=== PATIENT | male | born 1935 | race Hispanic/Latino ===

== ENCOUNTER 2018-10-23 00:45 | Emergency (ER) | payer MEDICARE ==
--- NOTE | 2018-10-23 01:38 | Cat Scan Report ---
PROCEDURE: CT HEAD/BRAIN WO CON TECHNIQUE: Routine axial imaging was obtained of the brain without contrast. HISTORY: neuro deficits <6hrs or sx present upon awakening COMPARISONS: None FINDINGS: There is age related volume loss. There is diminished attenuation of the periventricular white matter compatible with chronic ischemic white matter disease changes. There is a remote stroke in the right occipital lobe. There is no evidence of acute stroke or hemorrhage. The sinuses reveal patchy mucosa l thickening in the ethmoidal air cells and maxillary sinuses. The calvarium appears intact. IMPRESSION: Age related atrophy with severe chronic ischemic white matter disease changes. No acute stroke or hem orrhage. Remote stroke in the right occipital lobe. Sinusitis as described.. This document is electronically signed by Bhargav Hylton MD., October 23 2018 01:35:54 AM ET
--- NOTE | 2018-10-23 01:48 | Cat Scan Report ---
PROCEDURE: CT CERVICAL SPINE WO CON TECHNIQUE: Routine axial imaging was obtained of the cervical spine without contrast with sagittal a nd coronal reconstructions. HISTORY: fall, dementia COMPARISONS: None FINDINGS: There is a levoscoliosis and reversal of the usual cervical lordosis secondary to patient positioning and/or spasm. There is moderate narrowing of the C3-C4 disc with severe right-sided facet arthropathy changes. The canal size is normal. There is severe narrowing of the C4-C5 discs with anterior osteophytes. There is right-sided facet ar thropathy changes. At the C5-C6 level there is severe narrowing of disc with endplate spurring. There is mild canal sten osis at this level. There is mild facet arthropathy changes. At the C6-C7 level there is severe narrowing of this with endplate spurring. There is bilateral facet arthropathy changes. At the C7-T1 level there is moderate narrowing of the disc. There is a minimal a minimal anterolisthesis with associated severe facet arthropathy changes. Also a t the C7-T1 level. There is no evidence of fracture. The surrounding soft tissues reveal bilateral carotid artery calcif ications. The prevertebral soft tissues appear normal. The C1-C2 articulation reveals moderate arthri tic changes. IMPRESSION: Extensive multilevel degenerative arthritic changes as described. No acute fracture identified.. This document is electronically signed by Bhargav Hylton MD., October 23 2018 01:46:00 AM ET
[2018-10-23 01:54] LABS: Basophils # (Auto) 0.1 K/mm3 (0.0-0.1); Eosinophils # (Auto) 0.5 K/mm3 (0.0-0.4); Eosinophils % (Auto) 5.6 % (0.0-4.3); Hematocrit 44.7 % (35.5-45.6); Lymphocytes # (Auto) 1.9 K/mm3 (1.2-5.4); Lymphocytes % (Auto) 20.6 % (13.4-35.0); Mean Corpuscular HGB Conc 34 % (32-34); Mean Corpuscular Volume 86 fl (84-94); Monocytes # (Auto) 1.2 K/mm3 (0.0-0.8); Monocytes % (Auto) 13.4 % (0.0-7.3); Platelet Count 282 K/mm3 (140-440); Red Blood Count 5.21 M/mm3 (3.65-5.03); Red Cell Distribution Width 14.4 % (13.2-15.2)
[2018-10-23 02:06] LABS: INR 0.94 (0.87-1.13)
[2018-10-23 02:07] LABS: Partial Thromboplastin Time 30.1 Sec. (24.2-36.6); Thrombin Time 15.6 Sec. (15.1-19.6)
[2018-10-23 02:14] LABS: BUN/Creatinine Ratio 14; Blood Urea Nitrogen 14 mg/dL (9-20); Calcium 9.1 mg/dL (8.4-10.2); Hemolysis Index 7
[2018-10-23] MEDS ORDERED: NACL 0.9% 500 ML 500 ML IV ONE (02:27)
--- NOTE | 2018-10-23 02:46 | Emergency Department Report ---
ED Altered Mental Status HPI - General Chief Complaint: Fall Stated Complaint: UNSTEADY GAIT Time Seen by Provider: 10/23/18 01:06 Source: family, EMS Mode of arrival: Stretcher Limitations: Altered Mental Status, Physical Limitation - History of Present Illness Initial Comments: 83-year-old male with a past medical history COPD, CVA, "mild" dementia, h ypothyroidism, and hypertension presents to the hospital with altered mental status and fall. Patient is accompanied by his daughter at the bedside. Patient lives with his daughter. She states that patient told her that he took 2 Tylenol PM at 4:30 PM. She heard him fall then immediately cry out she was in another room. She came in to find him on the floor. Patient complains chronic left hip pain from previous surgery and injury that is unchanged. She states that this evening he was having visual and auditory hallucinations. Patient is alert and oriented 3 and hard of hearing. - Related Data Allergies Allergy/AdvReac Type Severity Reaction Status Date / Time aspirin Allergy Unknown Verified 10/23/18 01:01 ED Review of Systems ROS: Stated complaint: UNSTEADY GAIT Other details as noted in HPI Comment: All other systems reviewed and negative ED Past Medical Hx - Past Medical History Previous Medical History?: Yes Hx Hypertension: Yes Hx CVA: Yes (Left sided weakness) Hx COPD: Yes Hx Dementia: Yes Additional medical history: hypothyroidism - Surgical History Past Surgical History?: Yes Additional Surgical History: open heart surgery, hernia repair, Left hip surgery - Social History Smoking Status: Current Every Day Smoker ED Physical Exam - General Limitations: Altered Mental Status, Physical Limitation - Other Other exam information: General: No limitations, patient is alert in no acute distress Head exam: Atraumatic, normocephalic Eyes exam: Normal appearance, pupils equal reactive to light, extraocular movements intact ENT: Moist mucous membrane, hard of hearing Neck exam: Normal inspection, full range of motion, no meningismus nontender Respiratory exam: Clear to auscultation bilateral, no wheezes, rales, crackles Cardiovascular: Normal rate and rhythm, normal heart sounds Abdomen: Soft, nondistended, and nontender, with normal bowel sounds, no rebound, or guarding Extremity: Full range of motion normal inspection no deformity Back: Normal Inspection, full range of motion, no tenderness Neurologic: Alert, oriented x3, cranial nerves intact, no motor or sensory deficit Psychiatric: normal affect, normal mood Skin: Warm, dry, intact ED Course Vital Signs 10/23/18 10/23/18 10/23/18 00:55 00:57 01:08 Temperature 98.1 F Pulse Rate 63 63 Respiratory 13 15 15 Rate Blood Pressure 175/85 Blood Pressure 175/85 [Right] O2 Sat by Pulse 95 94 Oximetry 10/23/18 10/23/18 03:01 04:01 Temperature Pulse Rate 58 L 63 Respiratory 15 19 Rate Blood Pressure 163/86 163/86 Blood Pressure [Right] O2 Sat by Pulse 97 97 Oximetry - Lab Data Result diagrams: 10/23/18 01:33 10/23/18 01:33 Lab Results 10/23/18 10/23/18 10/23/18 Range/Units 01:33 01:33 01:33 WBC 9.2 (4.5-11.0) K/mm3 RBC 5.21 H (3.65-5.03) M/mm3 Hgb 15.0 (11.8-15.2) gm/dl Hct 44.7 (35.5-45.6) % MCV 86 (84-94) fl MCH 29 (28-32) pg MCHC 34 (32-34) % RDW 14.4 (13.2-15.2) % Plt Count 282 (140-440) K/mm3 Lymph % (Auto) 20.6 (13.4-35.0) % [place] % (Auto) 13.4 H (0.0-7.3) % Eos % (Auto) 5.6 H (0.0-4.3) % Baso % (Auto) 1.0 (0.0-1.8) % Lymph # 1.9 (1.2-5.4) K/mm3 [place] # 1.2 H (0.0-0.8) K/mm3 Eos # 0.5 H (0.0-0.4) K/mm3 Baso # 0.1 (0.0-0.1) K/mm3 Seg Neutrophils % 59.4 (40.0-70.0) % Seg Neutrophils # 5.4 (1.8-7.7) K/mm3 PT 13.1 (12.2-14.9) Sec. INR 0.94 (0.87-1.13) APTT 30.1 (24.2-36.6) Sec. Thrombin Time 15.6 (15.1-19.6) Sec. Sodium 140 (137-145) mmol/L Potassium 3.9 (3.6-5.0) mmol/L Chloride 102.6 (98-107) mmol/L Carbon Dioxide 25 (22-30) mmol/L Anion Gap 16 mmol/L BUN 14 (9-20) mg/dL Creatinine 1.0 (0.8-1.5) mg/dL Estimated GFR > 60 ml/min BUN/Creatinine Ratio 14 % Glucose 89 (75-100) mg/dL Calcium 9.1 (8.4-10.2) mg/dL Troponin T < 0.010 (0.00-0.029) ng/mL TSH (0.270-4.200) mlU/mL Free T4 (0.76-1.46) ng/dL Urine Color (Yellow) Urine Turbidity (Clear) Urine pH (5.0-7.0) Ur Specific [place] (1.003-1.030) Urine Protein (Negative) mg/dL Urine Glucose (UA) (Negative) mg/dL Urine Ketones (Negative) mg/dL Urine Blood (Negative) Urine Nitrite (Negative) Urine Bilirubin (Negative) Urine Urobilinogen (<2.0) mg/dL Ur Leukocyte Esterase (Negative) Urine WBC (Auto) (0.0-6.0) /HPF Urine RBC (Auto) (0.0-6.0) /HPF U Epithel Cells (Auto) (0-13.0) /HPF Urine Mucus /HPF Salicylates (2.8-20.0) mg/dL Urine Opiates Screen Urine Methadone Screen Acetaminophen (10.0-30.0) ug/mL Ur Barbiturates Screen Ur Phencyclidine Scrn Ur Amphetamines Screen U Benzodiazepines Scrn Urine Cocaine Screen U Marijuana (THC) Screen Drugs of Abuse Note Plasma/Serum Alcohol (0-0.07) % 10/23/18 10/23/18 10/23/18 Range/Units 02:30 02:37 02:37 WBC (4.5-11.0) K/mm3 RBC (3.65-5.03) M/mm3 Hgb (11.8-15.2) gm/dl Hct (35.5-45.6) % MCV (84-94) fl MCH (28-32) pg MCHC (32-34) % RDW (13.2-15.2) % Plt Count (140-440) K/mm3 Lymph % (Auto) (13.4-35.0) % [place] % (Auto) (0.0-7.3) % Eos % (Auto) (0.0-4.3) % Baso % (Auto) (0.0-1.8) % Lymph # (1.2-5.4) K/mm3 [place] # (0.0-0.8) K/mm3 Eos # (0.0-0.4) K/mm3 Baso # (0.0-0.1) K/mm3 Seg Neutrophils % (40.0-70.0) % Seg Neutrophils # (1.8-7.7) K/mm3 PT (12.2-14.9) Sec. INR (0.87-1.13) APTT (24.2-36.6) Sec. Thrombin Time (15.1-19.6) Sec. Sodium (137-145) mmol/L Potassium (3.6-5.0) mmol/L Chloride (98-107) mmol/L Carbon Dioxide (22-30) mmol/L Anion Gap mmol/L BUN (9-20) mg/dL Creatinine (0.8-1.5) mg/dL Estimated GFR ml/min BUN/Creatinine Ratio % Glucose (75-100) mg/dL Calcium (8.4-10.2) mg/dL Troponin T (0.00-0.029) ng/mL TSH 6.580 H (0.270-4.200) mlU/mL Free T4 1.05 (0.76-1.46) ng/dL Urine Color (Yellow) Urine Turbidity (Clear) Urine pH (5.0-7.0) Ur Specific [place] (1.003-1.030) Urine Protein (Negative) mg/dL Urine Glucose (UA) (Negative) mg/dL Urine Ketones (Negative) mg/dL Urine Blood (Negative) Urine Nitrite (Negative) Urine Bilirubin (Negative) Urine Urobilinogen (<2.0) mg/dL Ur Leukocyte Esterase (Negative) Urine WBC (Auto) (0.0-6.0) /HPF Urine RBC (Auto) (0.0-6.0) /HPF U Epithel Cells (Auto) (0-13.0) /HPF Urine Mucus /HPF Salicylates < 0.3 L (2.8-20.0) mg/dL Urine Opiates Screen Urine Methadone Screen Acetaminophen < 5.0 L (10.0-30.0) ug/mL Ur Barbiturates Screen Ur Phencyclidine Scrn Ur Amphetamines Screen U Benzodiazepines Scrn Urine Cocaine Screen U Marijuana (THC) Screen Drugs of Abuse Note Plasma/Serum Alcohol (0-0.07) % 10/23/18 10/23/18 10/23/18 Range/Units 02:37 02:50 02:50 WBC (4.5-11.0) K/mm3 RBC (3.65-5.03) M/mm3 Hgb (11.8-15.2) gm/dl Hct (35.5-45.6) % MCV (84-94) fl MCH (28-32) pg MCHC (32-34) % RDW (13.2-15.2) % Plt Count (140-440) K/mm3 Lymph % (Auto) (13.4-35.0) % [place] % (Auto) (0.0-7.3) % Eos % (Auto) (0.0-4.3) % Baso % (Auto) (0.0-1.8) % Lymph # (1.2-5.4) K/mm3 [place] # (0.0-0.8) K/mm3 Eos # (0.0-0.4) K/mm3 Baso # (0.0-0.1) K/mm3 Seg Neutrophils % (40.0-70.0) % Seg Neutrophils # (1.8-7.7) K/mm3 PT (12.2-14.9) Sec. INR (0.87-1.13) APTT (24.2-36.6) Sec. Thrombin Time (15.1-19.6) Sec. Sodium (137-145) mmol/L Potassium (3.6-5.0) mmol/L Chloride (98-107) mmol/L Carbon Dioxide (22-30) mmol/L Anion Gap mmol/L BUN (9-20) mg/dL Creatinine (0.8-1.5) mg/dL Estimated GFR ml/min BUN/Creatinine Ratio % Glucose (75-100) mg/dL Calcium (8.4-10.2) mg/dL Troponin T (0.00-0.029) ng/mL TSH (0.270-4.200) mlU/mL Free T4 (0.76-1.46) ng/dL Urine Color Yellow (Yellow) Urine Turbidity Clear (Clear) Urine pH 7.0 (5.0-7.0) Ur Specific [place] 1.010 (1.003-1.030) Urine Protein <15 mg/dl (Negative) mg/dL Urine Glucose (UA) Neg (Negative) mg/dL Urine Ketones Neg (Negative) mg/dL Urine Blood Neg (Negative) Urine Nitrite Neg (Negative) Urine Bilirubin Neg (Negative) Urine Urobilinogen < 2.0 (<2.0) mg/dL Ur Leukocyte Esterase Neg (Negative) Urine WBC (Auto) 1.0 (0.0-6.0) /HPF Urine RBC (Auto) 1.0 (0.0-6.0) /HPF U Epithel Cells (Auto) < 1.0 (0-13.0) /HPF Urine Mucus Few /HPF Salicylates (2.8-20.0) mg/dL Urine Opiates Screen Presumptive negative Urine Methadone Screen Presumptive negative Acetaminophen (10.0-30.0) ug/mL Ur Barbiturates Screen Presumptive negative Ur Phencyclidine Scrn Presumptive negative Ur Amphetamines Screen Presumptive negative U Benzodiazepines Scrn Presumptive negative Urine Cocaine Screen Presumptive negative U Marijuana (THC) Screen Presumptive negative Drugs of Abuse Note Disclamer Plasma/Serum Alcohol < 0.01 (0-0.07) % - Radiology Data Radiology results: report reviewed PROCEDURE: CT HEAD/BRAIN WO CON TECHNIQUE: Routine axial imaging was obtained of the brain without contrast. HISTORY: neuro deficits <6hrs or sx present upon awakening COMPARISONS: None FINDINGS: There is age related volume loss. There is diminished attenuation of the periventricular white matter compatible with chronic ischemic white matter disease changes. There is a remote stroke in the right occipital lobe. There is no evidence of acute stroke or hemorrhage. The sinuses reveal patchy mucosal thickening in the ethmoidal air cells and maxillary sinuses. The calvarium appears intact. IMPRESSION: Age related atrophy with severe chronic ischemic white matter disease changes. No acute stroke or hemorrhage. Remote stroke in the right occipital lobe. Sinusitis as described.. PROCEDURE: CT CERVICAL SPINE WO CON TECHNIQUE: Routine axial imaging was obtained of the cervical spine without contrast with sagittal and coronal reconstructions. HISTORY: fall, dementia COMPARISONS: None FINDINGS: There is a levoscoliosis and reversal of the usual cervical lordosis secondary to patient positioning and/or spasm. There is moderate narrowing of the C3-C4 disc with severe right-sided facet arthropathy changes. The canal size is normal. There is severe narrowing of the C4-C5 discs with anterior osteophytes. There is right-sided facet arthropathy changes. At the C5-C6 level there is severe narrowing of disc with endplate spurring. There is mild canal stenosis at this level. There is mild facet arthropathy changes. At the C6-C7 level there is severe narrowing of this with endplate spurring. There is bilateral facet arthropathy changes. At the C7-T1 level there is moderate narrowing of the disc. There is a minimal a minimal anterolisthesis with associated severe facet arthropathy changes. Also at the C7-T1 level. There is no evidence of fracture. The surrounding soft tissues reveal bilateral carotid artery calcifications. The prevertebral soft tissues appear normal. The C1-C2 articulation reveals moderate arthritic changes. IMPRESSION: Extensive multilevel degenerative arthritic changes as described. No acute fracture identified.. PROCEDURE: XR HIP 2-3V LT TECHNIQUE: An AP view of the pelvis was obtained on with 2 views of the left hip. HISTORY: acute exacerbation of chronic pain after fall COMPARISONS: None FINDINGS: There is [id number] narrowing of both hip joint spaces. There is no evidence of fracture. The bony pelvic ring appears intact. There is generalized osteopenia. The SI joints appear normal. The soft tissues are unremarkable. IMPRESSION: Bilateral mild to moderate arthritic changes of both hip joint spaces. No evidence of fracture.. - Medical Decision Making I suspect that patient has progressively worsening dementia. Apparently he has not had any psychiatric evaluation since initial diagnosis in 2007 or 2008. I also suspect his symptoms were exacerbated tonight due to taking Tylenol PM in the early evening. Patient is pleasant, follow commands, it is not overtly psychotic, combative, or vomiting. Patient received mental health evaluation as well as provided several outpatient resources for further psychiatric treatment. No acute injury or infection was identified during her ED evaluation. - Differential Diagnosis dementia, delirium, UTI, fracture, fall, adverse drug reaction Critical Care Time: No Critical care attestation.: If time is entered above; I have spent that time in minutes in the direct care of this critically ill patient, excluding procedure time. ED Disposition Clinical Impression: Dementia, Fall Disposition: DC-01 TO HOME OR SELFCARE Is pt being admited?: No Does the pt Need Aspirin: No Condition: Stable Instructions: Dementia (ED), Fall Prevention for Older Adults (ED) Additional Instructions: Follow up with your doctor or the clinic/doctor provided by the Mental health director diversity. Return if symptoms worsen as indicated by your discharge instructions Referrals: PRIMARY CARE,MD [Primary Care Provider] - 3-5 Days psychiatric, clinic [Other] - 3-5 Days Time of Disposition: 05:21
[2018-10-23 03:20] VITALS: BP 163/86
[2018-10-23 03:22] LABS: Free T4 (Free Thyroxine) 1.05 ng/dL (0.76-1.46)
[2018-10-23 03:25] LABS: Amphetamine Screen,Urine PRESUMPTIVE NEGATIVE; Benzodiazepines Screen,Urine PRESUMPTIVE NEGATIVE; Cannabinoid Screen,Urine PRESUMPTIVE NEGATIVE; Cocaine Screen,Urine PRESUMPTIVE NEGATIVE; Methadone Screen,Urine PRESUMPTIVE NEGATIVE; Opiate Screen,Urine PRESUMPTIVE NEGATIVE
[2018-10-23 03:30] LABS: Bilirubin,Urine NEG (Negative); Blood,Urine NEG (Negative); Color,Urine Yellow (Yellow); Mucus,Urine FEW /HPF; Protein,Urine <15 mg/dL mg/dL (Negative); Urobilinogen,Urine < 2.0 mg/dL (<2.0)
--- NOTE | 2018-10-23 05:17 | XRay Report ---
PROCEDURE: XR HIP 2-3V LT TECHNIQUE: An AP view of the pelvis was obtained on with 2 views of the left hip. HISTORY: acute exacerbation of chronic pain after fall COMPARISONS: None FINDINGS: There is [id number] narrowing of both hip joint spaces. There is no evidence of fracture. The b jared pelvic ring appears intact. There is generalized osteopenia. The SI joints appear normal. The sof t tissues are unremarkable. IMPRESSION: Bilateral mild to moderate arthritic changes of both hip joint spaces. No evidence of fracture.. This document is electronically signed by Bhargav Hylton MD., October 23 2018 05:15:51 AM ET
== END 2018-10-23 05:39 | disposition home or self-care (01) ==
LOC: ED 00:45
DX: F03.90 Unspecified dementia, unspecified severity, without behavioral disturbance, psychotic disturbance, mood disturbance, and anxiety (principal); I10 Essential (primary) hypertension; J44.9 Chronic obstructive pulmonary disease, unspecified; F17.200 Nicotine dependence, unspecified, uncomplicated; E03.9 Hypothyroidism, unspecified; Z88.6 Allergy status to analgesic agent
CPT/HCPCS: 36415; 70450; 72125; 73502; 80048; 80307; 81001; 84439; 84443; 84484; 85025; 85610; 85670; 85730; 93005; 93010; 99285; G0480; 80320

== ENCOUNTER 2019-02-17 07:38 | Emergency (ER) | payer MEDICARE ==
--- NOTE | 2019-02-17 08:20 | Emergency Department Report ---
ED General Adult HPI - General Chief complaint: Neuro Symptoms/Deficit Stated complaint: HALLUCINATIONS Time Seen by Provider: 02/17/19 08:18 Source: patient Mode of arrival: Ambulatory Limitations: No Limitations - History of Present Illness Initial comments: This is an 83-year-old man who presents with his disorder who is somewhat distraught about his recent behavioral issues. Apparently the patient has been hallucinating asking about tractors and his did sister. She is correlating this with Namenda which he began taking a few days ago. This was prescribed by a neurologist in [facility]. She states that the patient has seen a psychiatrist in 2015 but is not currently under care. He does have a history of dementia a diagnosis which the daughter very poorly comprehends. The patient himself is not offering any active complaints. He is somewhat perseverating and seems to be on confabulating or distracting from his cognitive challenges. He finally tells me his name and that he is in the hospital. He has no specific complaints himself. Family has stopped the Namenda. Last ED visit: 83-year-old male with a past medical history COPD, CVA, "mild" dementia, hypothyroidism, and hypertension presents to the hospital with altered mental status and fall. Patient is accompanied by his daughter at the bedside. Patient lives with his daughter. She states that patient told her that he took 2 Tylenol PM at 4:30 PM. She heard him fall then immediately cry out she was in another room. She came in to find him on the floor. Patient complains chronic left hip pain from previous surgery and injury that is unchanged. She states that this evening he was having visual and auditory hallucinations. Patient is alert and oriented 3 and hard of hearing. -: days(s) Associated Symptoms: denies other symptoms - Related Data Allergies Allergy/AdvReac Type Severity Reaction Status Date / Time aspirin Allergy Unknown Verified 10/23/18 01:01 ED Review of Systems ROS: Stated complaint: HALLUCINATIONS Other details as noted in HPI Comment: Unobtainable due to pts medical conditions (no specific complaints by review limited secondary to dementia) Respiratory: cough (recurrent cough, the daughter attributes this to COPD.) ED Past Medical Hx - Past Medical History Hx Hypertension: Yes Hx CVA: Yes (Left sided weakness) Hx COPD: Yes Hx Dementia: Yes Additional medical history: hypothyroidism. Dementia - Surgical History Additional Surgical History: open heart surgery, hernia repair, Left hip surgery - Social History Smoking Status: Never Smoker Substance Use Type: None ED Physical Exam - General Limitations: Other (dementia) General appearance: alert, in no apparent distress - Head Head exam: Present: atraumatic, normocephalic - Eye Eye exam: Present: normal appearance - ENT ENT exam: Present: mucous membranes moist - Neck Neck exam: Present: normal inspection. Absent: tenderness, meningismus - Respiratory Respiratory exam: Present: normal lung sounds bilaterally. Absent: respiratory distress - Cardiovascular Cardiovascular Exam: Present: regular rate, normal rhythm. Absent: systolic murmur, diastolic murmur, rubs, gallop - GI/Abdominal GI/Abdominal exam: Present: soft, normal bowel sounds. Absent: distended, tenderness, guarding, rebound - Rectal Rectal exam: Present: deferred - Extremities Exam Extremities exam: Present: normal inspection - Back Exam Back exam: Present: normal inspection - Neurological Exam Neurological exam: Present: alert, altered, other (no acute focal deficits) - Psychiatric Psychiatric exam: Present: normal mood, agitated (mildly) - Skin Skin exam: Present: warm, dry, intact, normal color. Absent: rash ED Course Vital Signs 02/17/19 02/17/19 07:57 11:28 Temperature 98.5 F Pulse Rate 65 84 Respiratory 16 16 Rate Blood Pressure 151/72 Blood Pressure 140/86 [Left] O2 Sat by Pulse 94 93 Oximetry - Reevaluation(s) Reevaluation #1: I have discussed the case with Emily (mental health counselor) he has also discussed the case with the psychiatric nurse practitioner Sloan. They have recommended a psychiatrist for near-term follow-up. They do not recommend antipsychotics at this point. They do not believe the patient is appropriate for inpatient placement. He will be discharged. 02/17/19 14:27 ED Medical Decision Making - Lab Data Result diagrams: 02/17/19 08:33 02/17/19 08:33 Laboratory Results - last 24 hr 02/17/19 02/17/19 02/17/19 08:33 08:33 08:33 WBC 9.1 RBC 5.17 H Hgb 15.0 Hct 45.2 MCV 88 MCH 29 MCHC 33 RDW 14.2 Plt Count 307 Lymph % (Auto) 16.4 [place] % (Auto) 10.5 H Eos % (Auto) 5.7 H Baso % (Auto) 1.9 H Lymph # 1.5 [place] # 1.0 H Eos # 0.5 H Baso # 0.2 H Seg Neutrophils % 65.5 Seg Neutrophils # 5.9 POC ABG pH POC ABG pCO2 POC ABG pO2 POC ABG HCO3 POC ABG Total CO2 POC ABG O2 Sat POC ABG Base Excess FiO2 Sodium 140 Potassium 4.4 Chloride 103.4 Carbon Dioxide 24 Anion Gap 17 BUN 17 Creatinine 1.1 Estimated GFR > 60 BUN/Creatinine Ratio 15 Glucose 102 H POC Glucose Calcium 9.3 Total Bilirubin 0.50 Direct Bilirubin < 0.2 Indirect Bilirubin 0.3 AST 15 ALT 10 Alkaline Phosphatase 95 Ammonia Total Protein 7.0 Albumin 3.7 L Albumin/Globulin Ratio 1.1 TSH Free T4 Plasma/Serum Alcohol 02/17/19 02/17/19 02/17/19 08:33 08:33 08:40 WBC RBC Hgb Hct MCV MCH MCHC RDW Plt Count Lymph % (Auto) [place] % (Auto) Eos % (Auto) Baso % (Auto) Lymph # [place] # Eos # Baso # Seg Neutrophils % Seg Neutrophils # POC ABG pH POC ABG pCO2 POC ABG pO2 POC ABG HCO3 POC ABG Total CO2 POC ABG O2 Sat POC ABG Base Excess FiO2 Sodium Potassium Chloride Carbon Dioxide Anion Gap BUN Creatinine Estimated GFR BUN/Creatinine Ratio Glucose POC Glucose Calcium Total Bilirubin Direct Bilirubin Indirect Bilirubin AST ALT Alkaline Phosphatase Ammonia 47.0 Total Protein Albumin Albumin/Globulin Ratio TSH 5.570 H Free T4 0.82 Plasma/Serum Alcohol < 0.01 02/17/19 02/17/19 09:07 09:35 WBC RBC Hgb Hct MCV MCH MCHC RDW Plt Count Lymph % (Auto) [place] % (Auto) Eos % (Auto) Baso % (Auto) Lymph # [place] # Eos # Baso # Seg Neutrophils % Seg Neutrophils # POC ABG pH 7.396 POC ABG pCO2 35.9 POC ABG pO2 65 L POC ABG HCO3 22.1 POC ABG Total CO2 23 POC ABG O2 Sat 92 POC ABG Base Excess -3 FiO2 21 Sodium Potassium Chloride Carbon Dioxide Anion Gap BUN Creatinine Estimated GFR BUN/Creatinine Ratio Glucose POC Glucose 97 Calcium Total Bilirubin Direct Bilirubin Indirect Bilirubin AST ALT Alkaline Phosphatase Ammonia Total Protein Albumin Albumin/Globulin Ratio TSH Free T4 Plasma/Serum Alcohol - EKG Data -: EKG Interpreted by Me EKG shows normal: sinus rhythm Rate: normal - EKG Data Interpretation: no acute changes - Radiology Data Radiology results: report reviewed (no acute process) Critical care attestation.: If time is entered above; I have spent that time in minutes in the direct care of this critically ill patient, excluding procedure time. ED Disposition Clinical Impression: Dementia with psychosis, Adverse effects of medication Disposition: DC-01 TO HOME OR SELFCARE Is pt being admited?: No Does the pt Need Aspirin: No Condition: Stable Instructions: Dementia (ED), Brief Psychotic Disorder (ED) Additional Instructions: Return to the emergency department should the situation escalate, if there is wandering or if there is any potential for violence. Otherwise follow-up with the referral psychiatrist. Referrals: GLORIA MARTINEZ MD [Primary Care Provider] - 3-5 Days Time of Disposition: 14:28
[2019-02-17 09:13] LABS: Basophils # (Auto) 0.2 K/mm3 (0.0-0.1); Basophils % (Auto) 1.9 % (0.0-1.8); Eosinophils # (Auto) 0.5 K/mm3 (0.0-0.4); Eosinophils % (Auto) 5.7 % (0.0-4.3); Hematocrit 45.2 % (35.5-45.6); Lymphocytes # (Auto) 1.5 K/mm3 (1.2-5.4); Lymphocytes % (Auto) 16.4 % (13.4-35.0); Mean Corpuscular HGB Conc 33 % (32-34); Mean Corpuscular Volume 88 fl (84-94); Monocytes % (Auto) 10.5 % (0.0-7.3); Platelet Count 307 K/mm3 (140-440); Red Blood Count 5.17 M/mm3 (3.65-5.03); Red Cell Distribution Width 14.2 % (13.2-15.2)
--- NOTE | 2019-02-17 09:24 | XRay Report ---
CHEST 1 VIEW 8:47 AM INDICATION / CLINICAL INFORMATION: Cough for one week. COMPARISON: None available. FINDINGS: SUPPORT DEVICES: None. HEART / MEDIASTINUM: There is a median sternotomy. The heart size and pulmonary vasculature are ysabel l. There is calcification in the aortic arch without aneurysm. LUNGS / PLEURA: There is a small calcified granuloma in the left mid to lower lung laterally. The damian gs are otherwise clear. No pneumothorax. ADDITIONAL FINDINGS: There is a moderate hiatal hernia in the retrocardiac region. IMPRESSION: 1. No acute findings. 2. Moderate hiatal hernia. Signer Name: Bhargav Rign MD Signed: 02/17/2019 9:20 AM Workstation Name: [id number]
[2019-02-17 09:35] LABS: Alanine Aminotransferase 10 units/L (7-56); Albumin 3.7 g/dL (3.9-5)
[2019-02-17 09:36] LABS: BUN/Creatinine Ratio 15; Blood Urea Nitrogen 17 mg/dL (9-20); Calcium 9.3 mg/dL (8.4-10.2); Hemolysis Index 18
--- NOTE | 2019-02-17 09:41 | Cat Scan Report ---
CT head/brain wo con INDICATION / CLINICAL INFORMATION: AMS. TECHNIQUE: All CT scans at this location are performed using CT dose reduction for ALARA by means of automated e xposure control. COMPARISON: 10/23/2018. FINDINGS: There is moderate generalized cerebral atrophy with moderate associated small vessel ischemic changes in the periventricular and deep white matter. There is also generalized cerebellar atrophy. 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 No new focal lesion or mass effect are identified. There is no evidence of intracranial hemorrhage or acute major vessel occlusion. There are chronic inflammatory changes involving the ethmoid air cells bilaterally. The other visualized paranasal sinuses and mastoid air cells are clear. IMPRESSION: No acute abnormality or significant change since 10/23/2018. Signer Name: Bhargav Ring MD Signed: 02/17/2019 9:37 AM Workstation Name: [id number]
[2019-02-17 09:47] LABS: Bilirubin,Direct < 0.2 mg/dL (0-0.2)
[2019-02-17 09:55] LABS: Free T4 (Free Thyroxine) 0.82 ng/dL (0.76-1.46)
[2019-02-17 11:28] VITALS: BP 140/86
== END 2019-02-17 15:10 | disposition home or self-care (01) ==
LOC: ED 07:38
DX: F03.91 Unspecified dementia, unspecified severity, with behavioral disturbance (principal); R44.3 Hallucinations, unspecified; T43.8X5A Adverse effect of other psychotropic drugs, initial encounter; I10 Essential (primary) hypertension; J44.9 Chronic obstructive pulmonary disease, unspecified; E03.9 Hypothyroidism, unspecified; Z86.73 Personal history of transient ischemic attack (TIA), and cerebral infarction without residual deficits; Z98.890 Other specified postprocedural states; Z88.6 Allergy status to analgesic agent; Y92.89 Other specified places as the place of occurrence of the external cause
CPT/HCPCS: 36415; 70450; 71045; 80048; 80076; 82140; 82803; 82962; 84439; 84443; 85025; 93005; 93010; 99285; G0480; 80320